=== PATIENT | female | born 1990 | race African-American/Black ===

== ENCOUNTER 2016-12-31 13:21 | Emergency (ER) | payer MEDICAID ==
[2016-12-31 13:23] VITALS: BP 105/46; PULSE 57; RESP 20; TEMP 98.3; O2SAT 98
[2016-12-31] MEDS ORDERED: SODIUM CHLOR 0.9% 1000 ML INJ 1,000 ML IV SCH (13:35)
--- NOTE | 2016-12-31 13:39 | PD ---
HPI Chief Complaint: Dizziness Time Seen by Provider: 13:35 Travel History International Travel<30 days: No Contact w/Intl Traveler<30days: No Traveled to known affect area: No History of Present Illness HPI 26-year-old female with no significant past medical issues, presents with 1 month history of intermittent nausea, vomiting, epigastric abdominal discomfort , dizziness, headaches. She states that she is not able to keep things down very well. She denies any diarrhea, fevers, vaginal discharge, or any other symptoms. Modifying Factors: None Associated Signs & Symptoms: Nausea, vomiting, headaches, dizziness, epigastric discomfort Risk Factors: None PFSH Past Medical History LMP: 12 03 16 Menopausal: No Social History Alcohol Use: No Tobacco Use: No Substance Use: No Allergies-Medications (Allergen,Severity, Reaction): Coded Allergies: Benadryl (Verified Allergy, Intermediate, FACIAL SWELLING, 02/23/15) Uncoded Allergies: PEPTO BISMOL (Allergy, Intermediate, UNKNOWN, 02/23/15) Reported Meds & Prescriptions Reported Meds & Active Scripts Active No Active Prescriptions or Reported Medications Review of Systems Except as stated in HPI: all other systems reviewed are Neg Physical Exam Narrative GENERAL: Well-developed young after Citizen [place] female patient currently not in significant distress. Awake and oriented 3. SKIN: Focused skin assessment warm/dry. HEAD: Atraumatic. Normocephalic. EYES: Pupils equal and round. No scleral icterus. No injection or drainage. ENT: No nasal bleeding or discharge. Mucous membranes pink and moist. NECK: Trachea midline. No JVD. CARDIOVASCULAR: Regular rate and rhythm. No murmur appreciated. RESPIRATORY: No accessory muscle use. Clear to auscultation. Breath sounds equal bilaterally. GASTROINTESTINAL: Abdomen soft, non-tender, nondistended. Hepatic and splenic margins not palpable. Benign. MUSCULOSKELETAL: No obvious deformities. No clubbing. No cyanosis. No edema. NEUROLOGICAL: Awake and alert. No obvious cranial nerve deficits. Motor grossly within normal limits. Normal speech. PSYCHIATRIC: Appropriate mood and affect; insight and judgment normal. Data Data Last Documented VS Vital Signs Date Time Temp Pulse Resp B/P Pulse Ox O2 Delivery O2 Flow Rate FiO2 12/31/16 13:51 99 Room Air 12/31/16 13:23 98.3 57 20 105/46 Orders Complete Blood Count With Diff (12/31/16 13:35) Comprehensive Metabolic Panel (12/31/16 13:35) Lipase (12/31/16 13:35) Urinalysis - C+S If Indicated (12/31/16 13:35) Iv Access Insert/Monitor (12/31/16 13:35) Ecg Monitoring (12/31/16 13:35) Oximetry (12/31/16 13:35) Ondansetron Inj (Zofran Inj) (12/31/16 13:45) Sodium Chlor 0.9% 1000 Ml Inj (Ns 1000 M (12/31/16 13:35) Sodium Chloride 0.9% Flush (Ns Flush) (12/31/16 13:45) Famotidine Inj (Pepcid Inj) (12/31/16 13:45) Ed Urine Pregnancytest Poc (12/31/16 13:35) Labs Laboratory Tests Test 12/31/16 12/31/16 13:45 13:50 Urine Collection Type CLEAN CATCH Urine Color YELLOW Urine Turbidity CLEAR Urine pH 6.0 Urine Specific [place] 1.025 Urine Protein NEG mg/dL Urine Glucose (UA) NEG mg/dL Urine Ketones NEG mg/dL Urine Occult Blood NEG Urine Nitrite NEG Urine Bilirubin NEG Urine Leukocyte Esterase NEG Urine WBC 0-2 /hpf Urine Squamous Epithelial 0-5 /hpf Cells Microscopic Urinalysis Comment CULT NOT INDICATED White Blood Count 7.5 TH/MM3 Red Blood Count 4.73 MIL/MM3 Hemoglobin 13.5 GM/DL Hematocrit 40.2 % Mean Corpuscular Volume 85.0 FL Mean Corpuscular Hemoglobin 28.5 PG Mean Corpuscular Hemoglobin 33.6 % Concent Red Cell Distribution Width 13.4 % Platelet Count 214 TH/MM3 Mean Platelet Volume 8.3 FL Neutrophils (%) (Auto) 66.4 % Lymphocytes (%) (Auto) 25.7 % Monocytes (%) (Auto) 6.0 % Eosinophils (%) (Auto) 1.1 % Basophils (%) (Auto) 0.8 % Neutrophils # (Auto) 5.0 TH/MM3 Lymphocytes # (Auto) 1.9 TH/MM3 Monocytes # (Auto) 0.4 TH/MM3 Eosinophils # (Auto) 0.1 TH/MM3 Basophils # (Auto) 0.1 TH/MM3 CBC Comment DIFF FINAL Differential Comment Sodium Level 142 MEQ/L Potassium Level 3.6 MEQ/L Chloride Level 108 MEQ/L Carbon Dioxide Level 25.5 MEQ/L Anion Gap 9 MEQ/L Blood Urea Nitrogen 11 MG/DL Creatinine 1.00 MG/DL Estimat Glomerular Filtration 82 ML/MIN Rate Random Glucose 92 MG/DL Calcium Level 8.4 MG/DL Total Bilirubin 1.4 MG/DL Aspartate Amino Transf 14 U/L (AST/SGOT) Alanine Aminotransferase 21 U/L (ALT/SGPT) Alkaline Phosphatase 74 U/L Total Protein 7.8 GM/DL Albumin 3.7 GM/DL Lipase 228 U/L MDM Medical Decision Making Medical Screen Exam Complete: Yes Emergency Medical Condition: Yes Medical Record Reviewed: Yes Interpretation(s) Laboratory Tests Test 12/31/16 13:50 Chloride Level 108 MEQ/L (98-107) Estimat Glomerular Filtration 82 ML/MIN (>89) Rate Calcium Level 8.4 MG/DL (8.5-10.1) Total Bilirubin 1.4 MG/DL (0.2-1.0) Aspartate Amino Transf 14 U/L (15-37) (AST/SGOT) Differential Diagnosis Nausea, vomiting, dizziness, headachesgastritis versus gastroesophageal reflux versus pancreatitis versus gastroenteritis versus versus dehydration versus metabolic issues Narrative Course Patient states that her headache is fairly mild currently. She states that about 3 out of 10. Abdomen is benign and I do not suspect an acute intra- abdominal process. Patient has been no meningeal signs. She is awake and oriented 3. Vital signs are stable. Lab work did not indicate any signs of leukocytosis, dehydration, left light abnormalities, and the patient is not . She was given IV fluids and Zofran in the ER. On reevaluation at 2 PM, she is doing well. At this point, my plan would be to release her with nausea medication and have her follow-up closely with primary care physician. Return for worsening in symptoms as needed. The plan has been discussed with her and she states understanding. Diagnosis Primary Impression: Nausea and vomiting Med/Other Pt SpecificInfo: Prescription(s) given Scripts Ondansetron Odt (Zofran Odt)4 Mg Tab4 Mg SL Q6HR PRN (Nausea/Vomiting) #7 TAB Ref 0 Prov:SoonMignon duran MD 12/31/16 Famotidine (Pepcid)20 Mg Tab20 Mg PO BID #14 TAB Ref 0 Prov:Soontharothai,Rewadee MD 12/31/16 Disposition: 01 DISCHARGE HOME Condition: Stable Mignon Staley MD Dec 31, 2016 13:39
[2016-12-31] MEDS ORDERED: SODIUM CHLORIDE 0.9% FLUSH 10 ML FLUSH IV FLUSH PRN (13:45)
[2016-12-31] MEDS ORDERED: FAMOTIDINE 20 MG/2 ML VIAL IV PUSH ONE (13:45)
[2016-12-31] MEDS ORDERED: ONDANSETRON HCL 4 MG/2 ML VIAL IVP ONE (13:45)
[2016-12-31 13:51] VITALS: O2SAT 99
[2016-12-31 14:00] LABS: BASOPHIL # 0.1 TH/MM3 (0-0.2); BASOPHIL % 0.8 % (0.0-2.0); EOSINOPHIL # 0.1 TH/MM3 (0-0.4); EOSINOPHIL % 1.1 % (0.0-4.0); HEMATOCRIT 40.2 % (35.0-46.0); HEMO FLAGS DIFF FINAL; LYMPH % 25.7 % (9.0-44.0); LYMPHOCYTE # 1.9 TH/MM3 (1.0-4.8); MEAN CORPUSCULAR HEMOGLOBIN 28.5 PG (27.0-34.0); MEAN CORPUSCULAR HGB CONC 33.6 % (32.0-36.0); NEUT % 66.4 % (16.0-70.0); PLATELET COUNT 214 TH/MM3 (150-450); RED BLOOD COUNT 4.73 MIL/MM3 (4.00-5.30); RED CELL DISTRIBUTION WIDTH 13.4 % (11.6-17.2); WHITE BLOOD COUNT 7.5 TH/MM3 (4.0-11.0)
[2016-12-31 14:01] LABS: BLOOD, URINE NEG (NEG); GLUCOSE,URINE NEG (NEG); KETONE, URINE NEG (NEG); NITRITE,URINE NEG (NEG)
[2016-12-31 14:05] LABS: METHOD OF COLLECTION CLEAN CATCH; URINE COLOR YELLOW (YELLW/STRAW)
[2016-12-31 14:06] LABS: COMMENT (UR) CULT NOT INDICATED; CULTURE IF INDICATED CULT NOT INDICATED; SQUAMOUS EPITHELIAL CELL URINE 0-5 /hpf (0-5); WBC, URINE 0-2 /hpf (0-5)
[2016-12-31 14:08] LABS: CHLORIDE 108 MEQ/L (98-107); POTASSIUM 3.6 MEQ/L (3.5-5.1); SODIUM (NA) 142 MEQ/L (136-145)
[2016-12-31 14:12] LABS: ANION GAP 9 MEQ/L (5-15); BICARBONATE 25.5 MEQ/L (21.0-32.0); BLOOD UREA NITROGEN 11 MG/DL (7-18)
[2016-12-31 14:15] LABS: ALT (GPT) 21 U/L (10-53); AST (GOT) 14 U/L (15-37); GLOMERULAR FILTRATION RATE 82 ML/MIN (>89)
[2016-12-31 14:16] LABS: TOTAL BILIRUBIN ADULT 1.4 MG/DL (0.2-1.0)
[2016-12-31 14:18] LABS: ALKALINE PHOSPHATASE 74 U/L (45-117)
[2016-12-31] MEDS ORDERED: ZOFR4TAB3 SL (14:24)
[2016-12-31] MEDS ORDERED: FAMO1TAB37 PO (14:24)
== END 2016-12-31 14:44 | disposition home or self-care (01) ==
LOC: PHED 13:21
DX: R11.2 Nausea with vomiting, unspecified (principal)
CPT/HCPCS: 80053; 81001; 83690; 84703; 85025; 96361; 96374; 96375; 99284; J2405; J7030